=== PATIENT | female | born 1980 | race African-American/Black ===

== ENCOUNTER 2016-09-08 21:17 | Emergency (ER) | payer MEDICAID ==
[~2016-09-08] VITALS: Ht 167.6 cm; Wt 115.0 kg
[~2016-09-08 21:17] MED LIST: ASPI-1035 PO; FERR-43 PO; LABE300T PO; PREN-88 PO; SEROQUEL; depakote
[2016-09-08] MEDS ORDERED: IBUPROFEN 600MG TABLET PO ONE (23:00)
[2016-09-09 00:20] LABS: BASOPHILS % 0.3 % (0.0-2.0); EOSINOPHILS % 1.5 % (0.0-5.0); HEMATOCRIT. 35.7 % (36.0-48.0); HEMOGLOBIN. 12.2 g/dL (12.0-16.0); LYMPHOCYTES % 35.5 % (20.0-50.0); MEAN CORPUSCULAR HEMOGLOBIN 31.6 pg (28.0-32.0); MEAN CORPUSCULAR HGB CONC 34.2 g/dL (31.0-37.0); MEAN CORPUSCULAR VOLUME 92.4 fL (81.0-99.0); MEAN PLATELET VOLUME 8.4 fl (7.4-10.4); MONOCYTES % 9.3 % (2.0-8.0); NEUTROPHILS % 53.4 % (40.0-76.0); PLATELET 201 x1000/uL (130-400); RED BLOOD CELL COUNT 3.86 mill/uL (4.2-5.4); RED CELL DISTRIBUTION WIDTH 14.6 % (11.6-14.6)
[2016-09-09 00:53] LABS: ALBUMIN 3.1 g/dL (3.4-5.0); ANION GAP 11; CALCIUM 8.5 mg/dL (8.5-10.1); CARBON DIOXIDE 30 mEq/L (21-32); CHLORIDE 102 mEq/L (98-107); UREA NITROGEN BLOOD 7 mg/dL (7-21); eGFR > 60 mL/min (>60)
[2016-09-09 00:54] LABS: ACETAMINOPHEN < 2 ug/mL (10-30); ALANINE AMINOTRANSFERASE 17 IU/L (13-61); ETHANOL BLOOD < 10 mg/dL; LIPASE 121 IU/L (73-393); TROPONIN I 0.02 ng/mL (0.00-0.04)
[2016-09-09 01:12] LABS: CLARITY URINE CLOUDY (CLEAR); COLOR URINE YELLOW (YELLOW); GLUCOSE URINE NEGATIVE (NEGATIVE); KETONES URINE NEGATIVE (NEGATIVE); LEUKOCYTE ESTERASE URINE 1+ (NEGATIVE); NITRITE URINE NEGATIVE (NEGATIVE); OCCULT BLOOD URINE NEGATIVE (NEGATIVE); PH URINE 6.5 (4.5-8.0); PROTEIN URINE NEGATIVE (NEGATIVE); SPECIFIC GRAVITY URINE 1.021 (1.005-1.030); UROBILINOGEN URINE 0.2 E.U./dL (0.2-1.0)
[2016-09-09 01:52] LABS: *AMPHETAMINES SCREEN URINE NEGATIVE (NEGATIVE); *BARBITURATES SCREEN URINE NEGATIVE (NEGATIVE); *BENZODIAZEPINES SCREEN URINE NEGATIVE (NEGATIVE); *COCAINE SCREEN URINE PRESUMTIVE POSITIVE (NEGATIVE)
[2016-09-09 01:53] LABS: CANNABINOID URINE SCREEN NEGATIVE (NEGATIVE); ECSTASY MDMA SCREEN URINE NEGATIVE (NEGATIVE); METHADONE URINE SCREEN NEGATIVE (NEGATIVE); OPIATES URINE SCREEN NEGATIVE (NEGATIVE); PHENCYCLIDINE URINE SCREEN NEGATIVE (NEGATIVE)
[2016-09-09 01:54] LABS: RBC URINE 0-2 /hpf (0-2); SQUAMOUS EPITHELIAL CELL URINE 2+ /lpf (RARE/1+)
[2016-09-09 01:55] LABS: BACTERIA URINE 1+
[2016-09-09 01:59] LABS: INDEX HEMOLYSI 1 (1-3); INDEX ICTERIC 1 (1-4); INDEX LIPEMIC 1 (1-3)
[2016-09-09] MEDS ORDERED: NITROFURANTOIN 100MG M/M CAPSULE PO ONE (06:45)
[2016-09-09 08:28] VITALS: BP 122/71
== END 2016-09-09 10:30 | disposition left against medical advice (07) ==
LOC: ER 21:18
DX: R07.89 Other chest pain (principal); R10.10 Upper abdominal pain, unspecified; F31.9 Bipolar disorder, unspecified; Z88.0 Allergy status to penicillin; Z79.82 Long term (current) use of aspirin
CPT/HCPCS: 36415; 76705; 76856; 80053; 80305; 80329; 81001; 81025; 83690; 84443; 84484; 85025; 93005; 99285; G0482; 80307

== ENCOUNTER 2017-01-12 12:16 | Emergency (ER) | payer MEDICAID ==
[~2017-01-12] VITALS: Ht 175.3 cm; Wt 113.0 kg
[~2017-01-12 12:16] MED LIST changes: -ASPI-1035 PO; +ASPI-1159 PO
[2017-01-12] MEDS ORDERED: IBUPROFEN 600MG TABLET PO ONE (14:45)
[2017-01-12 15:35] LABS: BASOPHILS % 0.5 % (0.0-2.0); EOSINOPHILS % 1.5 % (0.0-5.0); HEMATOCRIT. 37.5 % (36.0-48.0); HEMOGLOBIN. 12.8 g/dL (12.0-16.0); LYMPHOCYTES % 30.6 % (20.0-50.0); MEAN CORPUSCULAR HEMOGLOBIN 30.8 pg (28.0-32.0); MEAN CORPUSCULAR VOLUME 90.3 fL (81.0-99.0); MEAN PLATELET VOLUME 8.3 fl (7.4-10.4); MONOCYTES % 5.3 % (2.0-8.0); NEUTROPHILS % 62.1 % (40.0-76.0); PLATELET 209 x1000/uL (130-400); RED BLOOD CELL COUNT 4.16 mill/uL (4.2-5.4); RED CELL DISTRIBUTION WIDTH 13.7 % (11.6-14.6)
[2017-01-12 15:44] LABS: CARBON DIOXIDE 27 mEq/L (21-32); CHLORIDE 106 mEq/L (98-107)
[2017-01-12 16:04] LABS: CLARITY URINE CLEAR (CLEAR); COLOR URINE YELLOW (YELLOW); GLUCOSE URINE NEGATIVE (NEGATIVE); KETONES URINE 1+ (NEGATIVE); LEUKOCYTE ESTERASE URINE 1+ (NEGATIVE); NITRITE URINE NEGATIVE (NEGATIVE); OCCULT BLOOD URINE NEGATIVE (NEGATIVE); PROTEIN URINE NEGATIVE (NEGATIVE); SPECIFIC GRAVITY URINE 1.015 (1.005-1.030); UROBILINOGEN URINE 0.2 E.U./dL (0.2-1.0)
[2017-01-12 16:17] LABS: *AMPHETAMINES SCREEN URINE NEGATIVE (NEGATIVE); *BARBITURATES SCREEN URINE NEGATIVE (NEGATIVE); *BENZODIAZEPINES SCREEN URINE NEGATIVE (NEGATIVE); CANNABINOID URINE SCREEN NEGATIVE (NEGATIVE); METHADONE URINE SCREEN NEGATIVE (NEGATIVE); OPIATES URINE SCREEN NEGATIVE (NEGATIVE); PHENCYCLIDINE URINE SCREEN NEGATIVE (NEGATIVE)
[2017-01-12 16:18] LABS: *COCAINE SCREEN URINE PRESUMTIVE POSITIVE (NEGATIVE)
[2017-01-12 16:59] VITALS: BP 137/86
== END 2017-01-12 17:26 | disposition left against medical advice (07) ==
LOC: ER 14:28
DX: N39.0 Urinary tract infection, site not specified (principal); A59.9 Trichomoniasis, unspecified; M54.5 Low back pain; I10 Essential (primary) hypertension; E11.9 Type 2 diabetes mellitus without complications; F20.9 Schizophrenia, unspecified; F31.9 Bipolar disorder, unspecified; F17.200 Nicotine dependence, unspecified, uncomplicated; F12.10 Cannabis abuse, uncomplicated; Z59.0 Homelessness; Z79.82 Long term (current) use of aspirin; Z88.0 Allergy status to penicillin
CPT/HCPCS: 36415; 72110; 80053; 80305; 80307; 80329; 81001; 81025; 85025; 99285

== ENCOUNTER 2017-01-12 20:08 | Emergency (ER) | payer MEDICAID ==
[~2017-01-12] VITALS: Ht 167.6 cm; Wt 114.0 kg
[2017-01-13] MEDS ORDERED: ONDANSETRON HCL 4MG/2ML VIAL IV STA (03:04)
[2017-01-13] MEDS ORDERED: MAGNESIUM/ALUMINUM HYDROXIDE/SIMETHICONE 30ML UDC PO ONE (03:15)
[2017-01-13] MEDS ORDERED: DICYCLOMINE 10 MG/5 ML ORAL SYR PO ONE (03:15)
[2017-01-13] MEDS ORDERED: VISCOUS LIDOCAINE 2% 15 ML UDC PO ONE (03:15)
[2017-01-13 03:39] LABS: CLARITY URINE CLEAR (CLEAR); COLOR URINE YELLOW (YELLOW); GLUCOSE URINE NEGATIVE (NEGATIVE); KETONES URINE NEGATIVE (NEGATIVE); LEUKOCYTE ESTERASE URINE TRACE (NEGATIVE); NITRITE URINE NEGATIVE (NEGATIVE); OCCULT BLOOD URINE NEGATIVE (NEGATIVE); PROTEIN URINE NEGATIVE (NEGATIVE); SPECIFIC GRAVITY URINE 1.008 (1.005-1.030); UROBILINOGEN URINE 0.2 E.U./dL (0.2-1.0)
[2017-01-13 03:53] LABS: BASOPHILS % 0.4 % (0.0-2.0); EOSINOPHILS % 1.6 % (0.0-5.0); HEMATOCRIT. 36.5 % (36.0-48.0); HEMOGLOBIN. 12.3 g/dL (12.0-16.0); LYMPHOCYTES % 36.2 % (20.0-50.0); MEAN CORPUSCULAR HEMOGLOBIN 30.7 pg (28.0-32.0); MEAN CORPUSCULAR VOLUME 90.9 fL (81.0-99.0); MEAN PLATELET VOLUME 8.3 fl (7.4-10.4); MONOCYTES % 6.1 % (2.0-8.0); NEUTROPHILS % 55.7 % (40.0-76.0); PLATELET 209 x1000/uL (130-400); RED BLOOD CELL COUNT 4.01 mill/uL (4.2-5.4)
[2017-01-13 03:58] LABS: CHLORIDE 105 mEq/L (98-107)
[2017-01-13 04:02] LABS: PROTHROMBIN TIME 10.3 sec
[2017-01-13 04:08] LABS: CARBON DIOXIDE 27 mEq/L (21-32)
[2017-01-13 07:40] VITALS: BP 124/73
== END 2017-01-13 12:30 | disposition home or self-care (01) ==
LOC: ER 01-13 03:26
DX: K29.70 Gastritis, unspecified, without bleeding (principal); A59.9 Trichomoniasis, unspecified; A74.9 Chlamydial infection, unspecified; I10 Essential (primary) hypertension; E11.9 Type 2 diabetes mellitus without complications; Z79.82 Long term (current) use of aspirin; Z88.0 Allergy status to penicillin; Z79.899 Other long term (current) drug therapy
CPT/HCPCS: 36415; 80053; 81001; 81025; 82962; 83690; 85025; 85610; 93005; 99285

== ENCOUNTER 2017-01-13 14:11 | Emergency (ER) | payer MEDICAID ==
[~2017-01-13] VITALS: Ht 167.6 cm; Wt 139.4 kg
[2017-01-13 14:28] VITALS: BP 175/102
== END 2017-01-13 17:17 | disposition home or self-care (01) ==
LOC: ER 14:11
DX: B34.9 Viral infection, unspecified (principal); K29.70 Gastritis, unspecified, without bleeding; I10 Essential (primary) hypertension; E11.9 Type 2 diabetes mellitus without complications; F17.210 Nicotine dependence, cigarettes, uncomplicated; Z88.0 Allergy status to penicillin; Z79.82 Long term (current) use of aspirin; Z79.899 Other long term (current) drug therapy; Z98.890 Other specified postprocedural states
CPT/HCPCS: 99283

== ENCOUNTER 2017-04-25 17:49 | Inpatient (IN) | payer MEDICAID ==
[~2017-04-25] VITALS: Ht 167.6 cm; Wt 137.0 kg
[2017-04-25] MEDS ORDERED: SODIUM CHLORIDE 0.9% 1,000 ML IV ONE (22:30)
[2017-04-25] MEDS ORDERED: ONDANSETRON HCL 4MG/2ML VIAL IV STA (22:30)
[2017-04-25] MEDS ORDERED: MORPHINE SULFATE 4 MG/ML CPJ (NOT FOR IM USE) IV STA (22:30)
[2017-04-25 22:53] LABS: BASOPHILS % 0.6 % (0.0-2.0); EOSINOPHILS % 1.8 % (0.0-5.0); HEMATOCRIT. 39.1 % (36.0-48.0); HEMOGLOBIN. 13.4 g/dL (12.0-16.0); LYMPHOCYTES % 29.4 % (20.0-50.0); MEAN CORPUSCULAR VOLUME 90.2 fL (81.0-99.0); MEAN PLATELET VOLUME 8.3 fl (7.4-10.4); MONOCYTES % 5.7 % (2.0-8.0); NEUTROPHILS % 62.5 % (40.0-76.0); PLATELET 260 x1000/uL (130-400); RED BLOOD CELL COUNT 4.33 mill/uL (4.2-5.4)
[2017-04-25 23:00] LABS: CHLORIDE 108 mEq/L (98-107)
[2017-04-25 23:01] LABS: CLARITY URINE CLOUDY (CLEAR); COLOR URINE YELLOW (YELLOW); GLUCOSE URINE NEGATIVE (NEGATIVE); KETONES URINE TRACE (NEGATIVE); LEUKOCYTE ESTERASE URINE 2+ (NEGATIVE); NITRITE URINE NEGATIVE (NEGATIVE); OCCULT BLOOD URINE NEGATIVE (NEGATIVE); PH URINE 5.5 (4.5-8.0); PROTEIN URINE NEGATIVE (NEGATIVE); SPECIFIC GRAVITY URINE 1.024 (1.005-1.030); UROBILINOGEN URINE 0.2 E.U./dL (0.2-1.0)
[2017-04-25 23:01] LABS: CARBON DIOXIDE 27 mEq/L (21-32)
[2017-04-25 23:02] LABS: PROTHROMBIN TIME 10.1 sec (9.4-11.6)
[2017-04-25 23:08] LABS: HCG SCREEN NEGATIVE
[2017-04-26] MEDS ORDERED: ACETAMINOPHEN 325MG TABLET PO ONE (00:15)
[2017-04-26] MEDS ORDERED: CEFTRIAXONE 1 G PREMIX 50 ML IV ONE (00:45)
[2017-04-26] MEDS ORDERED: DIPHENHYDRAMINE 50MG/ML VIAL IV ONE (00:45)
[2017-04-26 01:26] LABS: TROPONIN I < 0.02 ng/mL (0.00-0.04)
[2017-04-26 09:00] VITALS: BP 122/67
[2017-04-26 09:19] VITALS: BP 122/67
[2017-04-26] MEDS ORDERED: LABE100T PO (09:27)
[2017-04-26] MEDS ORDERED: AMLO2.5T45 PO (09:27)
[2017-04-26] MEDS ORDERED: METF500T4 PO (09:27)
[2017-04-26] MEDS ORDERED: QUET400T PO (09:27)
[2017-04-26] MEDS ORDERED: MAGNESIUM/ALUMINUM HYDROXIDE/SIMETHICONE 30ML UDC PO PRN (10:15)
[2017-04-26] MEDS ORDERED: HYDROCODONE/ACETAMINOPHEN 5/325MG TABLET PO PRN (10:15)
[2017-04-26] MEDS ORDERED: ACETAMINOPHEN 325MG TABLET PO PRN (10:15)
[2017-04-26] MEDS ORDERED: CLONIDINE 0.1MG TABLET PO PRN (10:15)
[2017-04-26] MEDS ORDERED: ONDANSETRON HCL 4MG/2ML VIAL IV PRN (10:15)
[2017-04-26 12:00] VITALS: BP 134/64
[2017-04-26] MEDS ORDERED: LEVOFLOXACIN 500MG PREMIX 100 ML IV SCH (12:00)
[2017-04-26] MEDS: ASPIRIN 81MG EC TABLET PO SCH (12:59)
[2017-04-26 16:00] VITALS: BP 163/87
[2017-04-26] MEDS ORDERED: DEXTROSE 50% WATER 50ML SYRINGE IV PRN (19:15)
[2017-04-26 20:00] VITALS: BP 158/88
[2017-04-26] MEDS: INSULIN LISPRO 100 UNITS/ML SUBCUT SCH (20:16)
[2017-04-26] MEDS: BLOOD SUGAR DIAGNOSTIC STRIP TEST SCH (20:16)
[2017-04-27 00:05] VITALS: BP 161/74
[2017-04-27 04:00] VITALS: BP 143/82
[2017-04-27] MEDS: BLOOD SUGAR DIAGNOSTIC STRIP TEST SCH (07:38)
[2017-04-27] MEDS: INSULIN LISPRO 100 UNITS/ML SUBCUT SCH (07:38)
[2017-04-27 08:00] VITALS: BP 151/86
[2017-04-27] MEDS: ASPIRIN 81MG EC TABLET PO SCH (08:31)
[2017-04-27 09:14] LABS: BASOPHILS % 0.6 % (0.0-2.0); HEMOGLOBIN. 13.2 g/dL (12.0-16.0); LYMPHOCYTES % 30.8 % (20.0-50.0); MEAN CORPUSCULAR HEMOGLOBIN 30.3 pg (28.0-32.0); MEAN CORPUSCULAR VOLUME 89.6 fL (81.0-99.0); MEAN PLATELET VOLUME 8.2 fl (7.4-10.4); MONOCYTES % 5.6 % (2.0-8.0); PLATELET 238 x1000/uL (130-400); RED BLOOD CELL COUNT 4.35 mill/uL (4.2-5.4); RED CELL DISTRIBUTION WIDTH 13.8 % (11.6-14.6)
[2017-04-27 09:52] LABS: CARBON DIOXIDE 27 mEq/L (21-32); CHLORIDE 106 mEq/L (98-107)
== END 2017-04-27 09:30 | disposition left against medical advice (07) | DRG 463 ==
LOC: ER 17:49 → 7WST 04-26 00:52 → EDBEDREQ 04-26 00:53 → ENRESERV 04-26 07:01
PROVIDERS: ADMIT Internal Medicine; ATTEND Internal Medicine
DX: N39.0 Urinary tract infection, site not specified (principal); E87.8 Other disorders of electrolyte and fluid balance, not elsewhere classified; E11.9 Type 2 diabetes mellitus without complications; E86.0 Dehydration; F17.210 Nicotine dependence, cigarettes, uncomplicated; F12.90 Cannabis use, unspecified, uncomplicated; F31.9 Bipolar disorder, unspecified; J02.9 Acute pharyngitis, unspecified; Z88.0 Allergy status to penicillin; Z79.899 Other long term (current) drug therapy; Z79.82 Long term (current) use of aspirin
CPT/HCPCS: 36415; 71010; 80053; 81001; 82962; 83605; 83690; 83880; 84484; 84703; 85025; 85610; 87040; 87086; 93005; 93970; 96361; 96365; 96375; 99285; J0696; J1200; J1956; J2270; J2405; J7030; J7050

== ENCOUNTER 2018-03-14 12:52 | Emergency (ER) | payer MEDICAID ==
[~2018-03-14] VITALS: Ht 167.6 cm; Wt 136.0 kg
[~2018-03-14 12:52] MED LIST changes: +AMLO2.5T45 PO; +LABE100T5 PO; -LABE300T PO; +LABE300T3 PO; +METF500T6 PO; +QUET400T PO
[2018-03-14 14:50] LABS: CLARITY URINE CLOUDY (CLEAR); COLOR URINE YELLOW (YELLOW); KETONES URINE TRACE (NEGATIVE); LEUKOCYTE ESTERASE URINE NEGATIVE (NEGATIVE); NITRITE URINE NEGATIVE (NEGATIVE); OCCULT BLOOD URINE NEGATIVE (NEGATIVE); PROTEIN URINE NEGATIVE (NEGATIVE); SPECIFIC GRAVITY URINE 1.019 (1.005-1.030)
[2018-03-14] MEDS ORDERED: VISCOUS LIDOCAINE 2% 15 ML UDC PO STA (15:56)
[2018-03-14] MEDS ORDERED: ONDANSETRON 4MG ODT PO STA (15:56)
[2018-03-14] MEDS ORDERED: MAGNESIUM/ALUMINUM HYDROXIDE/SIMETHICONE 30ML UDC PO STA (15:56)
[2018-03-14 16:29] LABS: BASOPHILS % 0.5 % (0.0-2.0); EOSINOPHILS % 2.8 % (0.0-5.0); LYMPHOCYTES % 36.5 % (20.0-50.0); MEAN CORPUSCULAR HEMOGLOBIN 30.3 pg (28.0-32.0); MEAN CORPUSCULAR VOLUME 88.4 fL (81.0-99.0); MEAN PLATELET VOLUME 8.1 fl (7.4-10.4); MONOCYTES % 5.9 % (2.0-8.0); NEUTROPHILS % 54.3 % (40.0-76.0); PLATELET 248 x1000/uL (130-400); RED BLOOD CELL COUNT 3.96 mill/uL (4.2-5.4); RED CELL DISTRIBUTION WIDTH 14.2 % (11.6-14.6)
[2018-03-14 16:33] LABS: HCG SCREEN NEGATIVE
[2018-03-14 16:36] LABS: CHLORIDE 107 mEq/L (98-107)
[2018-03-14 17:28] VITALS: BP 142/75
== END 2018-03-14 17:33 | disposition home or self-care (01) ==
LOC: ER 14:14
DX: R10.13 Epigastric pain (principal); R11.0 Nausea; R05 Cough; R19.7 Diarrhea, unspecified; F31.9 Bipolar disorder, unspecified; E11.9 Type 2 diabetes mellitus without complications; F17.200 Nicotine dependence, unspecified, uncomplicated; F12.10 Cannabis abuse, uncomplicated; Z87.440 Personal history of urinary (tract) infections; Z90.49 Acquired absence of other specified parts of digestive tract; Z79.899 Other long term (current) drug therapy; Z79.82 Long term (current) use of aspirin
CPT/HCPCS: 36415; 80053; 81003; 83690; 84703; 85025; 85610; 99284; Q0162; Z7610

== ENCOUNTER 2018-04-30 19:38 | Emergency (ER) | payer MEDICAID ==
[~2018-04-30] VITALS: Ht 167.6 cm; Wt 144.0 kg
[2018-04-30 22:21] LABS: BASOPHILS % 0.5 % (0.0-2.0); EOSINOPHILS % 2.2 % (0.0-5.0); HEMATOCRIT. 36.5 % (36.0-48.0); HEMOGLOBIN. 12.5 g/dL (12.0-16.0); LYMPHOCYTES % 28.9 % (20.0-50.0); MEAN CORPUSCULAR HEMOGLOBIN 31.2 pg (28.0-32.0); MEAN CORPUSCULAR VOLUME 90.7 fL (81.0-99.0); MEAN PLATELET VOLUME 8.3 fl (7.4-10.4); MONOCYTES % 4.9 % (2.0-8.0); NEUTROPHILS % 63.5 % (40.0-76.0); PLATELET 264 x1000/uL (130-400); RED BLOOD CELL COUNT 4.03 mill/uL (4.2-5.4); RED CELL DISTRIBUTION WIDTH 14.2 % (11.6-14.6)
[2018-04-30 22:24] LABS: CLARITY URINE TURBID (CLEAR); COLOR URINE YELLOW (YELLOW); KETONES URINE 1+ (NEGATIVE); LEUKOCYTE ESTERASE URINE 2+ (NEGATIVE); NITRITE URINE NEGATIVE (NEGATIVE); OCCULT BLOOD URINE 2+ (NEGATIVE); PROTEIN URINE 3+ (NEGATIVE); SPECIFIC GRAVITY URINE 1.026 (1.005-1.030); UROBILINOGEN URINE 0.2 E.U./dL (0.2-1.0)
[2018-04-30 22:26] LABS: CHLORIDE 106 mEq/L (98-107)
[2018-04-30 22:34] LABS: ETHANOL BLOOD < 10 mg/dL
[2018-04-30 22:45] LABS: *BARBITURATES SCREEN URINE NEGATIVE (NEGATIVE); *BENZODIAZEPINES SCREEN URINE NEGATIVE (NEGATIVE); *COCAINE SCREEN URINE NEGATIVE (NEGATIVE); CANNABINOID URINE SCREEN NEGATIVE (NEGATIVE); METHADONE URINE SCREEN NEGATIVE (NEGATIVE); PHENCYCLIDINE URINE SCREEN NEGATIVE (NEGATIVE)
[2018-04-30] MEDS ORDERED: NITROFURANTOIN 100MG M/M CAPSULE PO ONE (22:45)
[2018-04-30 22:56] LABS: *AMPHETAMINES SCREEN URINE PRESUMTIVE POSITIVE (NEGATIVE)
[2018-04-30 22:57] LABS: OPIATES URINE SCREEN PRESUMTIVE POSITIVE (NEGATIVE)
[2018-05-01 13:56] VITALS: BP 138/68
== END 2018-05-01 14:00 | disposition home or self-care (01) ==
LOC: ER 21:35
DX: N30.00 Acute cystitis without hematuria (principal); F15.10 Other stimulant abuse, uncomplicated; I10 Essential (primary) hypertension; E11.9 Type 2 diabetes mellitus without complications; F31.9 Bipolar disorder, unspecified; F17.200 Nicotine dependence, unspecified, uncomplicated; R45.851 Suicidal ideations; F12.10 Cannabis abuse, uncomplicated; Z79.84 Long term (current) use of oral hypoglycemic drugs; Z98.890 Other specified postprocedural states
CPT/HCPCS: 36415; 80053; 80305; 81003; 85025; 87077; 87086; 87186; 99284; G0482

== ENCOUNTER 2018-08-31 18:20 | Emergency (ER) | payer MEDICAID ==
[~2018-08-31] VITALS: Ht 167.6 cm; Wt 136.0 kg
[~2018-08-31 18:20] MED LIST changes: +METF-414 PO; -METF500T6 PO
[2018-08-31] MEDS ORDERED: SODIUM CHLORIDE 0.9% 1,000 ML IV ONE (22:21)
[2018-08-31] MEDS ORDERED: KETOROLAC 30MG/ML VIAL IV STA (22:21)
[2018-08-31] MEDS ORDERED: ASPIRIN 81MG TABLET PO ONE (22:30)
[2018-08-31] MEDS ORDERED: NITROGLYCERIN 0.4MG TABLET SL SL PRN (22:30)
[2018-09-01 00:24] LABS: BASOPHILS % 0.3 % (0.0-2.0); EOSINOPHILS % 2.5 % (0.0-5.0); HEMATOCRIT. 36.3 % (36.0-48.0); LYMPHOCYTES % 42.3 % (20.0-50.0); MEAN CORPUSCULAR HEMOGLOBIN 29.6 pg (28.0-32.0); MEAN CORPUSCULAR VOLUME 89.7 fL (81.0-99.0); MEAN PLATELET VOLUME 8.1 fl (7.4-10.4); MONOCYTES % 6.3 % (2.0-8.0); NEUTROPHILS % 48.6 % (40.0-76.0); PLATELET 273 x1000/uL (130-400); RED BLOOD CELL COUNT 4.04 mill/uL (4.2-5.4); RED CELL DISTRIBUTION WIDTH 15.3 % (11.6-14.6)
[2018-09-01 00:27] LABS: CHLORIDE 108 mEq/L (98-107); PARTIAL THROMBOPLASTIN TIME 28.3 sec (23.4-31.0)
[2018-09-01 00:29] LABS: HCG SCREEN NEGATIVE
[2018-09-01 00:30] LABS: CLARITY URINE CLEAR (CLEAR); COLOR URINE YELLOW (YELLOW); KETONES URINE NEGATIVE (NEGATIVE); LEUKOCYTE ESTERASE URINE TRACE (NEGATIVE); NITRITE URINE NEGATIVE (NEGATIVE); OCCULT BLOOD URINE NEGATIVE (NEGATIVE); PH URINE 6.5 (4.5-8.0); PROTEIN URINE NEGATIVE (NEGATIVE); SPECIFIC GRAVITY URINE 1.005 (1.005-1.030); UROBILINOGEN URINE 0.2 E.U./dL (0.2-1.0)
[2018-09-01 00:44] LABS: *AMPHETAMINES SCREEN URINE NEGATIVE (NEGATIVE); *BARBITURATES SCREEN URINE NEGATIVE (NEGATIVE); *BENZODIAZEPINES SCREEN URINE NEGATIVE (NEGATIVE); *COCAINE SCREEN URINE NEGATIVE (NEGATIVE)
[2018-09-01 00:45] LABS: CANNABINOID URINE SCREEN NEGATIVE (NEGATIVE); METHADONE URINE SCREEN NEGATIVE (NEGATIVE); OPIATES URINE SCREEN NEGATIVE (NEGATIVE); PHENCYCLIDINE URINE SCREEN NEGATIVE (NEGATIVE)
[2018-09-01] MEDS ORDERED: CEFTRIAXONE 1 G PREMIX 50 ML IV ONE (01:00)
[2018-09-01 08:53] VITALS: BP 155/87
== END 2018-09-01 08:58 | disposition left against medical advice (07) ==
LOC: ER 18:20 → CANBEDREQ 09-01 17:58
DX: R07.89 Other chest pain (principal); N39.0 Urinary tract infection, site not specified; I10 Essential (primary) hypertension; E11.9 Type 2 diabetes mellitus without complications; F31.9 Bipolar disorder, unspecified; F17.210 Nicotine dependence, cigarettes, uncomplicated; Z79.82 Long term (current) use of aspirin; Z79.84 Long term (current) use of oral hypoglycemic drugs; Z98.890 Other specified postprocedural states; F12.10 Cannabis abuse, uncomplicated
CPT/HCPCS: 36415; 71045; 80053; 80305; 81003; 81025; 82962; 83690; 83880; 84484; 84703; 85025; 85610; 85730; 93005; 96365; 96375; 99284; J0696; J1885; J7030

== ENCOUNTER 2018-09-20 23:50 | Emergency (ER) | payer MEDICAID ==
[~2018-09-20] VITALS: Ht 167.6 cm; Wt 118.0 kg
[2018-09-21] MEDS ORDERED: IBUPROFEN 600MG TABLET PO STA (09:02)
[2018-09-21 09:55] LABS: BASOPHILS % 0.6 % (0.0-2.0); EOSINOPHILS % 2.1 % (0.0-5.0); HEMATOCRIT. 38.7 % (36.0-48.0); HEMOGLOBIN. 12.8 g/dL (12.0-16.0); LYMPHOCYTES % 39.3 % (20.0-50.0); MEAN CORPUSCULAR HEMOGLOBIN 29.5 pg (28.0-32.0); MEAN CORPUSCULAR VOLUME 89.1 fL (81.0-99.0); MONOCYTES % 7.1 % (2.0-8.0); NEUTROPHILS % 50.9 % (40.0-76.0); PLATELET 253 x1000/uL (130-400); RED BLOOD CELL COUNT 4.34 mill/uL (4.2-5.4); RED CELL DISTRIBUTION WIDTH 15.1 % (11.6-14.6)
[2018-09-21 10:02] LABS: CHLORIDE 105 mEq/L (98-107)
[2018-09-21 14:30] VITALS: BP 138/78
== END 2018-09-21 15:31 | disposition left against medical advice (07) ==
LOC: ER 23:50
DX: R07.89 Other chest pain (principal); J45.909 Unspecified asthma, uncomplicated; F31.9 Bipolar disorder, unspecified; E11.9 Type 2 diabetes mellitus without complications; I10 Essential (primary) hypertension; F20.9 Schizophrenia, unspecified; F17.200 Nicotine dependence, unspecified, uncomplicated; F12.10 Cannabis abuse, uncomplicated; Z79.82 Long term (current) use of aspirin; Z59.0 Homelessness; Z79.899 Other long term (current) drug therapy
CPT/HCPCS: 36415; 71045; 81025; 84484; 93005; 99284

== ENCOUNTER 2018-12-18 21:33 | Emergency (ER) | payer MEDICAID ==
[~2018-12-18] VITALS: Ht 167.6 cm; Wt 135.0 kg
[2018-12-18 23:16] LABS: HEMATOCRIT 38.3 % (36.0-48.0); HEMOGLOBIN 13.1 g/dL (12.0-16.0); MEAN CORPUSCULAR HEMOGLOBIN 30.8 pg (28.0-32.0); MEAN CORPUSCULAR VOLUME 89.7 fL (81.0-99.0); PLATELET 251 x1000/uL (130-400); RED BLOOD CELL COUNT 4.27 mill/uL (4.2-5.4); RED CELL DISTRIBUTION WIDTH 15.1 % (11.6-14.6)
[2018-12-18 23:22] LABS: CHLORIDE 109 mEq/L (98-107)
[2018-12-18 23:26] LABS: *BARBITURATES SCREEN URINE NEGATIVE (NEGATIVE); *BENZODIAZEPINES SCREEN URINE NEGATIVE (NEGATIVE)
[2018-12-18 23:27] LABS: METHADONE URINE SCREEN NEGATIVE (NEGATIVE); OPIATES URINE SCREEN NEGATIVE (NEGATIVE); PHENCYCLIDINE URINE SCREEN NEGATIVE (NEGATIVE)
[2018-12-19 00:12] LABS: CANNABINOID URINE SCREEN NEGATIVE (NEGATIVE)
[2018-12-19 00:18] LABS: *AMPHETAMINES SCREEN URINE PRESUMTIVE POSITIVE (NEGATIVE); *COCAINE SCREEN URINE PRESUMTIVE POSITIVE (NEGATIVE)
[2018-12-19 02:53] VITALS: BP 131/72
== END 2018-12-19 07:01 | disposition home or self-care (01) ==
LOC: ER 21:33
DX: F19.10 Other psychoactive substance abuse, uncomplicated (principal); R07.89 Other chest pain; E11.9 Type 2 diabetes mellitus without complications; I10 Essential (primary) hypertension; F20.9 Schizophrenia, unspecified; F31.9 Bipolar disorder, unspecified; G43.909 Migraine, unspecified, not intractable, without status migrainosus; F12.10 Cannabis abuse, uncomplicated; F17.200 Nicotine dependence, unspecified, uncomplicated; Z79.899 Other long term (current) drug therapy; Z98.890 Other specified postprocedural states; Y08.89XA Assault by other specified means, initial encounter; Y93.89 Activity, other specified; Y92.89 Other specified places as the place of occurrence of the external cause; Y99.8 Other external cause status
CPT/HCPCS: 36415; 71045; 80305; 81025; 85027; 93005; 99284

== ENCOUNTER 2019-04-03 12:27 | Emergency (ER) | payer MEDICAID ==
[~2019-04-03] VITALS: Ht 167.6 cm; Wt 128.0 kg
[~2019-04-03 12:27] MED LIST changes: -ASPI-1159 PO; +ASPI-1393 PO
[2019-04-03 12:59] VITALS: BP 122/83
== END 2019-04-03 15:05 | disposition left against medical advice (07) ==
LOC: ER 12:27
DX: R07.89 Other chest pain (principal); Z53.21 Procedure and treatment not carried out due to patient leaving prior to being seen by health care provider
CPT/HCPCS: 93005

== ENCOUNTER 2019-04-12 19:31 | Emergency (ER) | payer MEDICAID ==
[~2019-04-12] VITALS: Ht 167.6 cm; Wt 127.0 kg
[2019-04-13 02:00] LABS: BASOPHILS % 0.6 % (0.0-2.0); EOSINOPHILS % 1.4 % (0.0-5.0); HEMATOCRIT. 36.3 % (36.0-48.0); HEMOGLOBIN. 12.1 g/dL (12.0-16.0); LYMPHOCYTES % 46.6 % (20.0-50.0); MEAN CORPUSCULAR HEMOGLOBIN 29.5 pg (28.0-32.0); MEAN CORPUSCULAR VOLUME 88.9 fL (81.0-99.0); MONOCYTES % 8.3 % (2.0-8.0); NEUTROPHILS % 43.1 % (40.0-76.0); PLATELET 231 x1000/uL (130-400); RED BLOOD CELL COUNT 4.09 mill/uL (4.2-5.4); RED CELL DISTRIBUTION WIDTH 15.7 % (11.6-14.6)
[2019-04-13 02:07] LABS: CHLORIDE 105 mEq/L (98-107)
[2019-04-13 02:12] LABS: ETHANOL BLOOD < 10 mg/dL
[2019-04-13 05:52] LABS: CLARITY URINE CLEAR (CLEAR); COLOR URINE YELLOW (YELLOW); KETONES URINE TRACE (NEGATIVE); LEUKOCYTE ESTERASE URINE 1+ (NEGATIVE); NITRITE URINE NEGATIVE (NEGATIVE); OCCULT BLOOD URINE NEGATIVE (NEGATIVE); PH URINE 6.5 (4.5-8.0); PROTEIN URINE NEGATIVE (NEGATIVE); SPECIFIC GRAVITY URINE 1.018 (1.005-1.030); UROBILINOGEN URINE 0.2 E.U./dL (0.2-1.0)
[2019-04-13 06:07] LABS: *BENZODIAZEPINES SCREEN URINE NEGATIVE (NEGATIVE); *COCAINE SCREEN URINE NEGATIVE (NEGATIVE); CANNABINOID URINE SCREEN NEGATIVE (NEGATIVE); METHADONE URINE SCREEN NEGATIVE (NEGATIVE)
[2019-04-13 06:08] LABS: OPIATES URINE SCREEN NEGATIVE (NEGATIVE); PHENCYCLIDINE URINE SCREEN NEGATIVE (NEGATIVE)
[2019-04-13 06:14] LABS: *BARBITURATES SCREEN URINE NEGATIVE (NEGATIVE)
[2019-04-13 06:27] LABS: *AMPHETAMINES SCREEN URINE PRESUMTIVE POSITIVE (NEGATIVE)
[2019-04-13 07:14] VITALS: BP 124/68
== END 2019-04-13 08:50 | disposition left against medical advice (07) ==
LOC: ER 19:31
DX: Z59.0 Homelessness (principal); F31.9 Bipolar disorder, unspecified; Z32.02 Encounter for pregnancy test, result negative; I10 Essential (primary) hypertension; E11.9 Type 2 diabetes mellitus without complications
CPT/HCPCS: 36415; 80305; 80307; 80320; 80329; 81003; 81025; 82962; 93005; 99284; G0480

== ENCOUNTER 2019-06-05 12:05 | Emergency (ER) | payer MEDICAID ==
[~2019-06-05] VITALS: Ht 167.6 cm; Wt 130.0 kg
[2019-06-05 12:44] VITALS: BP 157/75
== END 2019-06-05 15:13 | disposition left against medical advice (07) ==
LOC: ER 12:05
DX: S09.8XXA Other specified injuries of head, initial encounter (principal); X58.XXXA Exposure to other specified factors, initial encounter; Y93.89 Activity, other specified; Y92.89 Other specified places as the place of occurrence of the external cause; Y99.8 Other external cause status; Z53.21 Procedure and treatment not carried out due to patient leaving prior to being seen by health care provider

== ENCOUNTER 2019-06-29 19:22 | Emergency (ER) | payer MEDICAID ==
[~2019-06-29] VITALS: Ht 167.6 cm; Wt 127.0 kg
[2019-06-30 01:32] VITALS: BP 140/90
[2019-06-30 01:39] LABS: BASOPHILS % 0.6 % (0.0-2.0); EOSINOPHILS % 0.3 % (0.0-5.0); HEMATOCRIT. 38.2 % (36.0-48.0); LYMPHOCYTES % 36.6 % (20.0-50.0); MEAN CORPUSCULAR HEMOGLOBIN 30.8 pg (28.0-32.0); MEAN CORPUSCULAR VOLUME 90.4 fL (81.0-99.0); MEAN PLATELET VOLUME 8.2 fl (7.4-10.4); MONOCYTES % 5.8 % (2.0-8.0); NEUTROPHILS % 56.7 % (40.0-76.0); PLATELET 281 x1000/uL (130-400); RED BLOOD CELL COUNT 4.23 mill/uL (4.2-5.4); RED CELL DISTRIBUTION WIDTH 14.5 % (11.6-14.6)
[2019-06-30 01:42] LABS: CHLORIDE 105 mEq/L (98-107)
[2019-06-30 01:43] LABS: PROTHROMBIN TIME 10.5 sec (9.6-11.0)
[2019-06-30] MEDS ORDERED: IPRATROPIUM BROMIDE (0.02%) 0.5MG/2.5ML NEB HHN SCH (01:48)
[2019-06-30] MEDS ORDERED: PREDNISONE 20MG TABLET PO SCH (01:48)
[2019-06-30] MEDS ORDERED: ALBUTEROL (0.083%) 2.5MG/3ML NEB HHN SCH (01:48)
[2019-06-30] MEDS ORDERED: SODIUM CHLORIDE 0.9% 1,000 ML IV ONE (02:00)
[2019-06-30 02:09] LABS: CLARITY URINE CLOUDY (CLEAR); COLOR URINE YELLOW (YELLOW); KETONES URINE TRACE (NEGATIVE); LEUKOCYTE ESTERASE URINE 1+ (NEGATIVE); NITRITE URINE NEGATIVE (NEGATIVE); OCCULT BLOOD URINE NEGATIVE (NEGATIVE); PROTEIN URINE TRACE (NEGATIVE); SPECIFIC GRAVITY URINE 1.017 (1.005-1.030)
[2019-06-30] MEDS ORDERED: IPRATROPIUM/ALBUTEROL 0.5-3(2.5)MG/3ML NEB ONE (02:22)
[2019-06-30] MEDS ORDERED: ALBUTEROL (0.5%) 2.5MG/0.5ML NEB HHN ONE (02:22)
[2019-06-30 02:23] LABS: *BARBITURATES SCREEN URINE NEGATIVE (NEGATIVE); *BENZODIAZEPINES SCREEN URINE NEGATIVE (NEGATIVE); METHADONE URINE SCREEN NEGATIVE (NEGATIVE); OPIATES URINE SCREEN NEGATIVE (NEGATIVE); PHENCYCLIDINE URINE SCREEN NEGATIVE (NEGATIVE)
[2019-06-30 02:24] LABS: CANNABINOID URINE SCREEN NEGATIVE (NEGATIVE)
[2019-06-30 02:28] LABS: *AMPHETAMINES SCREEN URINE PRESUMTIVE POSITIVE (NEGATIVE); *COCAINE SCREEN URINE PRESUMTIVE POSITIVE (NEGATIVE)
== END 2019-06-30 03:51 | disposition left against medical advice (07) ==
LOC: ER 19:22
DX: R05 Cough (principal); F17.290 Nicotine dependence, other tobacco product, uncomplicated; J45.909 Unspecified asthma, uncomplicated; Z79.82 Long term (current) use of aspirin; Z79.899 Other long term (current) drug therapy
CPT/HCPCS: 36415; 71045; 80053; 80305; 81003; 81025; 82962; 85025; 85610; 87086; 93005; 94640; 99284; J7512; J7611; J7620; Z7610

== ENCOUNTER 2019-07-10 22:08 | Emergency (ER) | payer MEDICAID ==
[~2019-07-10] VITALS: Ht 165.1 cm; Wt 127.0 kg
[2019-07-11 05:42] LABS: BASOPHILS % 0.3 % (0.0-2.0); EOSINOPHILS % 1.3 % (0.0-5.0); HEMATOCRIT. 36.3 % (36.0-48.0); HEMOGLOBIN. 12.3 g/dL (12.0-16.0); MEAN CORPUSCULAR VOLUME 91.9 fL (81.0-99.0); MONOCYTES % 7.3 % (2.0-8.0); NEUTROPHILS % 47.1 % (40.0-76.0); PLATELET 215 x1000/uL (130-400); RED BLOOD CELL COUNT 3.96 mill/uL (4.2-5.4); RED CELL DISTRIBUTION WIDTH 14.1 % (11.6-14.6)
[2019-07-11 05:56] LABS: CHLORIDE 109 mEq/L (98-107)
[2019-07-11 08:53] VITALS: BP 146/82
== END 2019-07-11 09:20 | disposition left against medical advice (07) ==
LOC: ER 22:08
DX: R07.89 Other chest pain (principal); R06.02 Shortness of breath; R11.2 Nausea with vomiting, unspecified; E11.9 Type 2 diabetes mellitus without complications; I10 Essential (primary) hypertension; F20.9 Schizophrenia, unspecified; F17.290 Nicotine dependence, other tobacco product, uncomplicated; F14.10 Cocaine abuse, uncomplicated; F12.10 Cannabis abuse, uncomplicated; F15.10 Other stimulant abuse, uncomplicated; Z79.899 Other long term (current) drug therapy
CPT/HCPCS: 36415; 71045; 80053; 83880; 84484; 85025; 93005; 99284; Z7610

== ENCOUNTER 2019-08-16 14:03 | Emergency (ER) | payer MEDICAID ==
[~2019-08-16] VITALS: Ht 160 cm; Wt 114.0 kg
[~2019-08-16 14:03] MED LIST changes: -ASPI-1393 PO; +ASPI-1497 PO
[2019-08-16] MEDS ORDERED: MAGNESIUM/ALUMINUM HYDROXIDE/SIMETHICONE 30ML UDC PO STA (18:24)
[2019-08-16] MEDS ORDERED: VISCOUS LIDOCAINE 2% 15 ML UDC PO STA (18:24)
[2019-08-16 18:46] LABS: BASOPHILS % 0.9 % (0.0-2.0); HEMOGLOBIN. 12.7 g/dL (12.0-16.0); LYMPHOCYTES % 39.6 % (20.0-50.0); MEAN CORPUSCULAR HEMOGLOBIN 30.5 pg (28.0-32.0); MEAN CORPUSCULAR VOLUME 91.6 fL (81.0-99.0); MONOCYTES % 6.3 % (2.0-8.0); NEUTROPHILS % 50.2 % (40.0-76.0); PLATELET 262 x1000/uL (130-400); RED BLOOD CELL COUNT 4.15 mill/uL (4.2-5.4); RED CELL DISTRIBUTION WIDTH 14.3 % (11.6-14.6)
[2019-08-16 18:52] LABS: CHLORIDE 108 mEq/L (98-107)
[2019-08-16 18:55] LABS: ETHANOL BLOOD < 10 mg/dL
[2019-08-16 19:00] LABS: CLARITY URINE CLEAR (CLEAR); COLOR URINE RED (YELLOW); KETONES URINE NEGATIVE (NEGATIVE); LEUKOCYTE ESTERASE URINE TRACE (NEGATIVE); NITRITE URINE NEGATIVE (NEGATIVE); OCCULT BLOOD URINE 3+ (NEGATIVE); PH URINE 5.5 (4.5-8.0); PROTEIN URINE NEGATIVE (NEGATIVE); SPECIFIC GRAVITY URINE 1.008 (1.005-1.030); UROBILINOGEN URINE 0.2 E.U./dL (0.2-1.0)
[2019-08-16 19:13] LABS: *BARBITURATES SCREEN URINE NEGATIVE (NEGATIVE); *BENZODIAZEPINES SCREEN URINE NEGATIVE (NEGATIVE); *COCAINE SCREEN URINE NEGATIVE (NEGATIVE); METHADONE URINE SCREEN NEGATIVE (NEGATIVE); OPIATES URINE SCREEN NEGATIVE (NEGATIVE); PHENCYCLIDINE URINE SCREEN NEGATIVE (NEGATIVE)
[2019-08-16 19:14] LABS: CANNABINOID URINE SCREEN NEGATIVE (NEGATIVE)
[2019-08-16 19:16] LABS: *AMPHETAMINES SCREEN URINE PRESUMTIVE POSITIVE (NEGATIVE)
[2019-08-17 08:12] VITALS: BP 140/85
== END 2019-08-17 08:19 ==
LOC: ER 14:03
DX: F29 Unspecified psychosis not due to a substance or known physiological condition (principal); R10.2 Pelvic and perineal pain; F32.9 Major depressive disorder, single episode, unspecified; F14.10 Cocaine abuse, uncomplicated; F15.10 Other stimulant abuse, uncomplicated; F12.10 Cannabis abuse, uncomplicated; N39.0 Urinary tract infection, site not specified; I10 Essential (primary) hypertension
CPT/HCPCS: 36415; 80053; 80165; 80305; 80320; 81003; 81025; 85025; 99285; G0480

== ENCOUNTER 2019-11-23 22:06 | Emergency (ER) | payer MEDICAID ==
[~2019-11-23] VITALS: Ht 167.6 cm; Wt 127.0 kg
[2019-11-23 22:36] VITALS: BP 154/67
== END 2019-11-24 00:34 | disposition left against medical advice (07) ==
LOC: ER 22:06
DX: B34.9 Viral infection, unspecified (principal); E11.9 Type 2 diabetes mellitus without complications; I10 Essential (primary) hypertension; F14.10 Cocaine abuse, uncomplicated; F12.10 Cannabis abuse, uncomplicated; F15.10 Other stimulant abuse, uncomplicated; Z79.899 Other long term (current) drug therapy
CPT/HCPCS: 71045; 82962; 99283

== ENCOUNTER 2020-01-03 21:39 | Emergency (ER) | payer MEDICAID ==
[~2020-01-03] VITALS: Ht 162.6 cm; Wt 113.0 kg
[2020-01-04 02:12] LABS: BASOPHILS % 0.9 % (0.0-2.0); EOSINOPHILS % 2.1 % (0.0-5.0); HEMATOCRIT. 33.2 % (36.0-48.0); HEMOGLOBIN. 11.2 g/dL (12.0-16.0); LYMPHOCYTES % 37.9 % (20.0-50.0); MEAN CORPUSCULAR VOLUME 88.9 fL (81.0-99.0); MEAN PLATELET VOLUME 8.1 fl (7.4-10.4); MONOCYTES % 12.5 % (2.0-8.0); NEUTROPHILS % 46.6 % (40.0-76.0); PLATELET 268 x1000/uL (130-400); RED BLOOD CELL COUNT 3.73 mill/uL (4.2-5.4); RED CELL DISTRIBUTION WIDTH 15.1 % (11.6-14.6)
[2020-01-04 02:16] LABS: CHLORIDE 107 mEq/L (98-107)
[2020-01-04 03:10] VITALS: BP 133/69
== END 2020-01-04 03:16 | disposition home or self-care (01) ==
LOC: ER 21:39
DX: Z03.818 Encounter for observation for suspected exposure to other biological agents ruled out (principal); R07.89 Other chest pain; J06.9 Acute upper respiratory infection, unspecified; E11.9 Type 2 diabetes mellitus without complications; I10 Essential (primary) hypertension; F14.10 Cocaine abuse, uncomplicated; F15.10 Other stimulant abuse, uncomplicated; F12.10 Cannabis abuse, uncomplicated; Z86.19 Personal history of other infectious and parasitic diseases; Z79.84 Long term (current) use of oral hypoglycemic drugs; Z79.82 Long term (current) use of aspirin
CPT/HCPCS: 36415; 71045; 80053; 81025; 83880; 84484; 85025; 93005; 99285; U0003

== ENCOUNTER 2020-02-08 19:25 | Emergency (ER) | payer MEDICAID ==
[~2020-02-08] VITALS: Ht 175.3 cm; Wt 100.0 kg
[2020-02-08] MEDS ORDERED: IBUPROFEN 400MG TABLET PO ONE (20:45)
[2020-02-08 20:59] LABS: BASOPHILS % 0.5 % (0.0-2.0); CHLORIDE 107 mEq/L (98-107); EOSINOPHILS % 1.1 % (0.0-5.0); HEMATOCRIT. 33.7 % (36.0-48.0); HEMOGLOBIN. 11.4 g/dL (12.0-16.0); LYMPHOCYTES % 32.7 % (20.0-50.0); MEAN CORPUSCULAR HEMOGLOBIN 28.9 pg (28.0-32.0); MEAN CORPUSCULAR VOLUME 85.5 fL (81.0-99.0); MEAN PLATELET VOLUME 7.5 fl (7.4-10.4); MONOCYTES % 8.6 % (2.0-8.0); NEUTROPHILS % 57.1 % (40.0-76.0); PLATELET 325 x1000/uL (130-400); RED BLOOD CELL COUNT 3.95 mill/uL (4.2-5.4); RED CELL DISTRIBUTION WIDTH 15.8 % (11.6-14.6)
[2020-02-08 21:03] LABS: ETHANOL BLOOD 14 mg/dL
[2020-02-08 21:15] LABS: HCG SCREEN NEGATIVE
[2020-02-08] MEDS ORDERED: ASPIRIN 325MG EC TABLET PO ONE (21:15)
[2020-02-08 23:37] LABS: CLARITY URINE CLOUDY (CLEAR); COLOR URINE YELLOW (YELLOW); KETONES URINE NEGATIVE (NEGATIVE); LEUKOCYTE ESTERASE URINE 1+ (NEGATIVE); NITRITE URINE NEGATIVE (NEGATIVE); OCCULT BLOOD URINE NEGATIVE (NEGATIVE); PH URINE 5.5 (4.5-8.0); PROTEIN URINE NEGATIVE (NEGATIVE); SPECIFIC GRAVITY URINE 1.014 (1.005-1.030)
[2020-02-09] MEDS ORDERED: LIDOCAINE HCL 1% 20ML VIAL (Pyxis) INJ INFIL ONE
[2020-02-09] MEDS ORDERED: CEFTRIAXONE SODIUM 1 G/VIAL IM ONE
[2020-02-09 00:07] LABS: *BARBITURATES SCREEN URINE NEGATIVE (NEGATIVE); *BENZODIAZEPINES SCREEN URINE NEGATIVE (NEGATIVE); *COCAINE SCREEN URINE NEGATIVE (NEGATIVE); CANNABINOID URINE SCREEN NEGATIVE (NEGATIVE); METHADONE URINE SCREEN NEGATIVE (NEGATIVE); OPIATES URINE SCREEN NEGATIVE (NEGATIVE); PHENCYCLIDINE URINE SCREEN NEGATIVE (NEGATIVE)
[2020-02-09 00:10] LABS: *AMPHETAMINES SCREEN URINE PRESUMTIVE POSITIVE (NEGATIVE)
[2020-02-09] MEDS ORDERED: METOPROLOL TARTRATE 25MG TABLET PO ONE (05:00)
[2020-02-09] MEDS ORDERED: OLANZAPINE 10 MG/VIAL IM ONE ×2 (07:15)
[2020-02-09] MEDS ORDERED: LORAZEPAM 2MG/ML CPJ IM ONE ×2 (07:15)
[2020-02-09] MEDS ORDERED: LORAZEPAM 2MG/ML CPJ ONE (07:16)
[2020-02-10 22:51] VITALS: BP 159/75
== END 2020-02-11 00:32 | disposition home or self-care (01) ==
LOC: ER 19:25
DX: T43.621A Poisoning by amphetamines, accidental (unintentional), initial encounter (principal); F10.129 Alcohol abuse with intoxication, unspecified; N39.0 Urinary tract infection, site not specified; R07.89 Other chest pain; F20.9 Schizophrenia, unspecified; F31.9 Bipolar disorder, unspecified; I10 Essential (primary) hypertension; E11.9 Type 2 diabetes mellitus without complications; F14.10 Cocaine abuse, uncomplicated; F12.10 Cannabis abuse, uncomplicated; Y90.0 Blood alcohol level of less than 20 mg/100 ml; Z79.82 Long term (current) use of aspirin; Y92.89 Other specified places as the place of occurrence of the external cause
CPT/HCPCS: 36415; 71045; 80053; 80305; 80307; 80320; 80329; 81003; 81025; 84484; 84703; 85025; 87086; 93005; 96372; 99285; J0696; J2060; J3490; G0480

== ENCOUNTER 2020-05-01 23:55 | Emergency (ER) | payer MEDICAID ==
[~2020-05-01] VITALS: Ht 162.6 cm; Wt 100.0 kg
[2020-05-02] MEDS ORDERED: ACETAMINOPHEN 325MG TABLET PO ONE (00:30)
[2020-05-02] MEDS ORDERED: SODIUM CHLORIDE 0.9% 1,000 ML IV ONE (01:00)
[2020-05-02 01:53] LABS: BASOPHILS % 0.6 % (0.0-2.0); EOSINOPHILS % 0.6 % (0.0-5.0); HEMATOCRIT. 31.5 % (36.0-48.0); HEMOGLOBIN. 10.4 g/dL (12.0-16.0); MEAN CORPUSCULAR HEMOGLOBIN 28.1 pg (28.0-32.0); MEAN CORPUSCULAR VOLUME 85.2 fL (81.0-99.0); MEAN PLATELET VOLUME 8.2 fl (7.4-10.4); MONOCYTES % 5.2 % (2.0-8.0); NEUTROPHILS % 40.6 % (40.0-76.0); PLATELET 258 x1000/uL (130-400); RED CELL DISTRIBUTION WIDTH 18.4 % (11.6-14.6)
[2020-05-02 02:10] LABS: CHLORIDE 105 mEq/L (98-107)
[2020-05-02 02:14] LABS: ETHANOL BLOOD 11 mg/dL
[2020-05-02 04:06] LABS: CLARITY URINE CLOUDY (CLEAR); COLOR URINE YELLOW (YELLOW); KETONES URINE NEGATIVE (NEGATIVE); LEUKOCYTE ESTERASE URINE 1+ (NEGATIVE); NITRITE URINE NEGATIVE (NEGATIVE); OCCULT BLOOD URINE NEGATIVE (NEGATIVE); PROTEIN URINE TRACE (NEGATIVE)
[2020-05-02 04:19] LABS: *BARBITURATES SCREEN URINE NEGATIVE (NEGATIVE); *COCAINE SCREEN URINE NEGATIVE (NEGATIVE); METHADONE URINE SCREEN NEGATIVE (NEGATIVE); OPIATES URINE SCREEN NEGATIVE (NEGATIVE); PHENCYCLIDINE URINE SCREEN NEGATIVE (NEGATIVE)
[2020-05-02 04:20] LABS: *BENZODIAZEPINES SCREEN URINE NEGATIVE (NEGATIVE)
[2020-05-02 04:28] LABS: *AMPHETAMINES SCREEN URINE PRESUMTIVE POSITIVE (NEGATIVE); CANNABINOID URINE SCREEN PRESUMTIVE POSITIVE (NEGATIVE)
[2020-05-02 05:45] VITALS: BP 130/58
[2020-05-03] MEDS ORDERED: SODIUM CHLORIDE 0.9% 1,000 ML IV ONE (01:00)
== END 2020-05-02 06:00 | disposition home or self-care (01) ==
LOC: ER 23:55
DX: F15.10 Other stimulant abuse, uncomplicated (principal); F16.10 Hallucinogen abuse, uncomplicated; F12.10 Cannabis abuse, uncomplicated; F10.129 Alcohol abuse with intoxication, unspecified; Y90.0 Blood alcohol level of less than 20 mg/100 ml; F14.10 Cocaine abuse, uncomplicated; I10 Essential (primary) hypertension; E11.9 Type 2 diabetes mellitus without complications; F20.9 Schizophrenia, unspecified
CPT/HCPCS: 36415; 80053; 80305; 80320; 81003; 85025; 87086; 93005; 96360; 99285; J7030; G0480

== ENCOUNTER 2020-05-18 06:40 | Emergency (ER) | payer MEDICAID ==
[~2020-05-18] VITALS: Ht 172.7 cm; Wt 136.0 kg
[2020-05-18] MEDS ORDERED: IBUPROFEN 600MG TABLET PO STA (07:28)
[2020-05-18 08:14] LABS: BASOPHILS % 0.6 % (0.0-2.0); EOSINOPHILS % 1.6 % (0.0-5.0); HEMATOCRIT. 34.7 % (36.0-48.0); HEMOGLOBIN. 11.5 g/dL (12.0-16.0); LYMPHOCYTES % 34.1 % (20.0-50.0); MEAN CORPUSCULAR HEMOGLOBIN 28.5 pg (28.0-32.0); MONOCYTES % 6.6 % (2.0-8.0); NEUTROPHILS % 57.1 % (40.0-76.0); PLATELET 316 x1000/uL (130-400); RED BLOOD CELL COUNT 4.04 mill/uL (4.2-5.4); RED CELL DISTRIBUTION WIDTH 18.3 % (11.6-14.6)
[2020-05-18 08:25] LABS: CHLORIDE 104 mEq/L (98-107)
[2020-05-18 08:27] LABS: ETHANOL BLOOD < 10 mg/dL
[2020-05-18 08:34] LABS: CLARITY URINE CLEAR (CLEAR); COLOR URINE RED (YELLOW); KETONES URINE NEGATIVE (NEGATIVE); LEUKOCYTE ESTERASE URINE TRACE (NEGATIVE); NITRITE URINE NEGATIVE (NEGATIVE); OCCULT BLOOD URINE 3+ (NEGATIVE); PH URINE 5.5 (4.5-8.0); PROTEIN URINE TRACE (NEGATIVE); UROBILINOGEN URINE 0.2 E.U./dL (0.2-1.0)
[2020-05-18 09:00] VITALS: BP 145/70
[2020-05-18 09:02] LABS: *BARBITURATES SCREEN URINE NEGATIVE (NEGATIVE); *BENZODIAZEPINES SCREEN URINE NEGATIVE (NEGATIVE); *COCAINE SCREEN URINE NEGATIVE (NEGATIVE); METHADONE URINE SCREEN NEGATIVE (NEGATIVE); OPIATES URINE SCREEN NEGATIVE (NEGATIVE); PHENCYCLIDINE URINE SCREEN NEGATIVE (NEGATIVE)
[2020-05-18 09:11] LABS: CANNABINOID URINE SCREEN NEGATIVE (NEGATIVE)
[2020-05-18 09:15] LABS: *AMPHETAMINES SCREEN URINE PRESUMTIVE POSITIVE (NEGATIVE)
== END 2020-05-18 09:49 | disposition home or self-care (01) ==
LOC: ER 06:40
DX: T14.8XXA Other injury of unspecified body region, initial encounter (principal); F31.9 Bipolar disorder, unspecified; E11.9 Type 2 diabetes mellitus without complications; I10 Essential (primary) hypertension; F14.10 Cocaine abuse, uncomplicated; F12.10 Cannabis abuse, uncomplicated; F15.10 Other stimulant abuse, uncomplicated; Y08.89XA Assault by other specified means, initial encounter; Y93.89 Activity, other specified; Y92.488 Other paved roadways as the place of occurrence of the external cause
CPT/HCPCS: 36415; 71045; 80053; 80305; 80320; 81003; 81025; 85025; 93005; 99285; G0480

== ENCOUNTER 2020-06-11 01:01 | Emergency (ER) | payer MEDICAID ==
[~2020-06-11] VITALS: Ht 167.6 cm; Wt 127.0 kg
[2020-06-11 01:57] VITALS: BP 104/49
== END 2020-06-11 03:15 | disposition home or self-care (01) ==
LOC: ER 01:01
DX: R05 Cough (principal); R06.02 Shortness of breath; I10 Essential (primary) hypertension; E11.9 Type 2 diabetes mellitus without complications; F12.10 Cannabis abuse, uncomplicated; F17.210 Nicotine dependence, cigarettes, uncomplicated; Z71.6 Tobacco abuse counseling; Z79.84 Long term (current) use of oral hypoglycemic drugs; Z79.82 Long term (current) use of aspirin
CPT/HCPCS: 71045; 93005; 99283; 99406

== ENCOUNTER 2020-08-17 23:35 | Emergency (ER) | payer MEDICAID ==
[~2020-08-17] VITALS: Ht 167.6 cm; Wt 79.5 kg
[2020-08-18] MEDS ORDERED: ACETAMINOPHEN 325MG TABLET PO ONE (01:15)
[2020-08-18] MEDS ORDERED: ONDANSETRON HCL 4MG/2ML INJ IV STA (01:59)
[2020-08-18] MEDS ORDERED: KETOROLAC 30MG/ML VIAL IV STA (01:59)
[2020-08-18] MEDS ORDERED: SODIUM CHLORIDE 0.9% 1,000 ML IV ONE (02:00)
[2020-08-18 02:42] LABS: METHADONE URINE SCREEN NEGATIVE (NEGATIVE)
[2020-08-18 02:43] LABS: *BARBITURATES SCREEN URINE NEGATIVE (NEGATIVE); *BENZODIAZEPINES SCREEN URINE NEGATIVE (NEGATIVE); *COCAINE SCREEN URINE NEGATIVE (NEGATIVE); CANNABINOID URINE SCREEN NEGATIVE (NEGATIVE); OPIATES URINE SCREEN NEGATIVE (NEGATIVE); PHENCYCLIDINE URINE SCREEN NEGATIVE (NEGATIVE)
[2020-08-18 02:54] LABS: BASOPHILS % 0.5 % (0.0-2.0); EOSINOPHILS % 1.5 % (0.0-5.0); HEMOGLOBIN. 11.7 g/dL (12.0-16.0); LYMPHOCYTES % 44.5 % (20.0-50.0); MEAN CORPUSCULAR VOLUME 86.2 fL (81.0-99.0); MEAN PLATELET VOLUME 7.9 fl (7.4-10.4); MONOCYTES % 5.2 % (2.0-8.0); NEUTROPHILS % 48.3 % (40.0-76.0); PLATELET 274 x1000/uL (130-400); RED BLOOD CELL COUNT 4.17 mill/uL (4.2-5.4); RED CELL DISTRIBUTION WIDTH 16.5 % (11.6-14.6)
[2020-08-18 03:02] LABS: CHLORIDE 108 mEq/L (98-107)
[2020-08-18 03:07] LABS: CLARITY URINE CLEAR (CLEAR); COLOR URINE YELLOW (YELLOW); KETONES URINE NEGATIVE (NEGATIVE); LEUKOCYTE ESTERASE URINE 2+ (NEGATIVE); NITRITE URINE NEGATIVE (NEGATIVE); OCCULT BLOOD URINE 3+ (NEGATIVE); PROTEIN URINE NEGATIVE (NEGATIVE); SPECIFIC GRAVITY URINE 1.007 (1.005-1.030)
[2020-08-18 03:09] LABS: ETHANOL BLOOD 11 mg/dL
[2020-08-18 03:19] LABS: HCG SCREEN NEGATIVE
[2020-08-18 03:27] LABS: *AMPHETAMINES SCREEN URINE PRESUMTIVE POSITIVE (NEGATIVE)
[2020-08-18] MEDS ORDERED: CEFTRIAXONE 1 G PREMIX 50 ML IV ONE (04:30)
[2020-08-18] MEDS ORDERED: CEPH500C2 MT (06:24)
[2020-08-18 06:40] VITALS: BP 153/82
== END 2020-08-18 06:44 | disposition home or self-care (01) ==
LOC: ER 23:35
DX: N39.0 Urinary tract infection, site not specified (principal); F15.10 Other stimulant abuse, uncomplicated; I10 Essential (primary) hypertension; E11.9 Type 2 diabetes mellitus without complications; F31.9 Bipolar disorder, unspecified; Z86.19 Personal history of other infectious and parasitic diseases; Z79.84 Long term (current) use of oral hypoglycemic drugs; Z79.82 Long term (current) use of aspirin
CPT/HCPCS: 36415; 80048; 80305; 80320; 81003; 81025; 82962; 83690; 84703; 85025; 87070; 87086; 87430; 96361; 96365; 96375; 99285; J0696; J1885; J2405; J7030; G0480

== ENCOUNTER 2020-09-05 12:26 | Emergency (ER) | payer MEDICAID ==
[~2020-09-05] VITALS: Ht 170.2 cm; Wt 87.0 kg
[~2020-09-05 12:26] MED LIST changes: +CEPH500C2 MT
[2020-09-05 12:43] VITALS: BP 143/78
[2020-09-05] MEDS ORDERED: IBUPROFEN 600MG TABLET PO STA (12:52)
[2020-09-05 13:12] LABS: BASOPHILS % 0.5 % (0.0-2.0); EOSINOPHILS % 1.8 % (0.0-5.0); HEMATOCRIT. 32.3 % (36.0-48.0); HEMOGLOBIN. 10.6 g/dL (12.0-16.0); MEAN CORPUSCULAR HEMOGLOBIN 28.1 pg (28.0-32.0); MEAN CORPUSCULAR VOLUME 85.7 fL (81.0-99.0); MEAN PLATELET VOLUME 7.5 fl (7.4-10.4); MONOCYTES % 6.7 % (2.0-8.0); PLATELET 243 x1000/uL (130-400); RED BLOOD CELL COUNT 3.77 mill/uL (4.2-5.4); RED CELL DISTRIBUTION WIDTH 16.7 % (11.6-14.6)
[2020-09-05 13:21] LABS: CHLORIDE 109 mEq/L (98-107)
[2020-09-05 13:29] LABS: HCG SCREEN NEGATIVE
[2020-09-05 13:32] LABS: ETHANOL BLOOD < 10 mg/dL
== END 2020-09-05 14:14 | disposition left against medical advice (07) ==
LOC: ER 12:26
DX: R07.89 Other chest pain (principal); R11.2 Nausea with vomiting, unspecified; I10 Essential (primary) hypertension; E11.9 Type 2 diabetes mellitus without complications; F31.9 Bipolar disorder, unspecified
CPT/HCPCS: 36415; 71045; 80053; 80320; 84484; 84703; 85025; 93005; 99285; G0480

== ENCOUNTER 2021-08-24 09:35 | Emergency (ER) | payer MEDICAID ==
[~2021-08-24] VITALS: Ht 167.6 cm; Wt 118.0 kg
[2021-08-24 12:13] VITALS: BP 158/93
== END 2021-08-24 12:14 | disposition home or self-care (01) ==
LOC: ER 09:35
DX: J02.9 Acute pharyngitis, unspecified (principal); J06.9 Acute upper respiratory infection, unspecified; M79.10 Myalgia, unspecified site; I10 Essential (primary) hypertension; Z88.0 Allergy status to penicillin; Z20.822 Contact with and (suspected) exposure to COVID-19; Z98.890 Other specified postprocedural states
CPT/HCPCS: 71045; 87426; 99284

== ENCOUNTER 2021-09-08 11:45 | Emergency (ER) | payer MEDICAID ==
[~2021-09-08] VITALS: Ht 180.3 cm; Wt 112.0 kg
[2021-09-08] MEDS ORDERED: DIPHENHYDRAMINE 50MG/ML VIAL IM STA (12:40)
[2021-09-08] MEDS ORDERED: OLANZAPINE 10 MG/VIAL IM STA (12:40)
[2021-09-08] MEDS ORDERED: LORAZEPAM 2MG/ML CPJ IM PRN (12:45)
[2021-09-08 13:25] VITALS: BP 197/101
[2021-09-08 14:07] LABS: BASOPHILS % 0.4 % (0.0-2.0); EOSINOPHILS % 1.1 % (0.0-5.0); HEMATOCRIT. 34.7 % (36.0-48.0); HEMOGLOBIN. 11.6 g/dL (12.0-16.0); LYMPHOCYTES % 28.4 % (20.0-50.0); MEAN CORPUSCULAR HEMOGLOBIN 28.8 pg (28.0-32.0); MEAN CORPUSCULAR VOLUME 86.5 fL (81.0-99.0); MONOCYTES % 5.1 % (2.0-8.0); PLATELET 271 x1000/uL (130-400); RED BLOOD CELL COUNT 4.01 mill/uL (4.2-5.4); RED CELL DISTRIBUTION WIDTH 15.7 % (11.6-14.6)
[2021-09-08 14:19] LABS: CHLORIDE 108 mEq/L (98-107); CLARITY URINE CLEAR (CLEAR); COLOR URINE YELLOW (YELLOW); KETONES URINE NEGATIVE (NEGATIVE); LEUKOCYTE ESTERASE URINE TRACE (NEGATIVE); NITRITE URINE NEGATIVE (NEGATIVE); OCCULT BLOOD URINE TRACE (NEGATIVE); PROTEIN URINE NEGATIVE (NEGATIVE); SPECIFIC GRAVITY URINE 1.012 (1.005-1.030); UROBILINOGEN URINE 0.2 E.U./dL (0.2-1.0)
[2021-09-08 14:23] LABS: ETHANOL BLOOD 154 mg/dL
[2021-09-08 14:35] LABS: *COCAINE SCREEN URINE NEGATIVE (NEGATIVE); CANNABINOID URINE SCREEN NEGATIVE (NEGATIVE); OPIATES URINE SCREEN NEGATIVE (NEGATIVE)
[2021-09-08 14:36] LABS: *BARBITURATES SCREEN URINE NEGATIVE (NEGATIVE)
[2021-09-08 14:37] LABS: *AMPHETAMINES SCREEN URINE PRESUMTIVE POSITIVE (NEGATIVE); METHADONE URINE SCREEN NEGATIVE (NEGATIVE)
[2021-09-08 14:38] LABS: *BENZODIAZEPINES SCREEN URINE NEGATIVE (NEGATIVE)
[2021-09-08 14:40] LABS: PHENCYCLIDINE URINE SCREEN PRESUMTIVE POSITIVE (NEGATIVE)
[2021-09-08 14:41] LABS: HCG SCREEN NEGATIVE
== END 2021-09-08 19:41 | disposition home or self-care (01) ==
LOC: ER 11:45
DX: F19.10 Other psychoactive substance abuse, uncomplicated (principal); Z20.822 Contact with and (suspected) exposure to COVID-19
CPT/HCPCS: 36415; 80053; 80305; 80320; 81003; 84703; 85025; 96372; 99291; C9803; J1200; J2060; J3490; U0003; U0005; G0480

== ENCOUNTER 2021-09-27 19:03 | Emergency (ER) | payer MEDICAID ==
[~2021-09-27] VITALS: Ht 167.6 cm; Wt 80.0 kg
[2021-09-27 19:11] VITALS: BP 230/114
== END 2021-09-27 19:30 | disposition left against medical advice (07) ==
LOC: ER 19:03
DX: Z53.21 Procedure and treatment not carried out due to patient leaving prior to being seen by health care provider (principal)
CPT/HCPCS: 93005

== ENCOUNTER 2021-10-04 04:46 | Emergency (ER) | payer MEDICAID ==
[~2021-10-04] VITALS: Ht 157.5 cm; Wt 110.0 kg
[2021-10-04] MEDS ORDERED: IBUPROFEN 400MG TABLET PO ONE (06:30)
[2021-10-04] MEDS ORDERED: LABE300T3 PO (06:32)
[2021-10-04] MEDS ORDERED: IBUP-2028 PO (06:32)
[2021-10-04 07:45] VITALS: BP 197/101
[2021-10-04] MEDS ORDERED: LABETALOL HCL 300MG TABLET PO STA (08:12)
== END 2021-10-04 09:39 | disposition left against medical advice (07) ==
LOC: ER 04:46
DX: R07.0 Pain in throat (principal); I16.0 Hypertensive urgency; Z20.822 Contact with and (suspected) exposure to COVID-19; Z88.0 Allergy status to penicillin; Z91.018 Allergy to other foods
CPT/HCPCS: 87070; 87426; 87430; 99283

== ENCOUNTER 2021-11-28 08:08 | Emergency (ER) | payer MEDICAID ==
[~2021-11-28] VITALS: Ht 177.8 cm; Wt 110.0 kg
[~2021-11-28 08:08] MED LIST changes: +IBUP-2028 PO
[2021-11-28] MEDS ORDERED: MORPHINE SULFATE 4 MG/ML CPJ (NOT FOR IM USE) IV STA (08:18)
[2021-11-28] MEDS ORDERED: ONDANSETRON HCL 4MG/2ML INJ IV STA (08:18)
[2021-11-28] MEDS ORDERED: SODIUM CHLORIDE 0.9% 1,000 ML IV ONE (08:30)
[2021-11-28 08:40] LABS: BASOPHILS % 0.4 % (0.0-2.0); EOSINOPHILS % 0.8 % (0.0-5.0); HEMATOCRIT. 39.6 % (36.0-48.0); HEMOGLOBIN. 13.3 g/dL (12.0-16.0); LYMPHOCYTES % 28.6 % (20.0-50.0); MEAN CORPUSCULAR HEMOGLOBIN 29.1 pg (28.0-32.0); MEAN CORPUSCULAR VOLUME 86.3 fL (81.0-99.0); MEAN PLATELET VOLUME 7.7 fl (7.4-10.4); MONOCYTES % 4.1 % (2.0-8.0); NEUTROPHILS % 66.1 % (40.0-76.0); PLATELET 319 x1000/uL (130-400); RED BLOOD CELL COUNT 4.59 mill/uL (4.2-5.4); RED CELL DISTRIBUTION WIDTH 16.2 % (11.6-14.6)
[2021-11-28 08:46] LABS: CHLORIDE 108 mEq/L (98-107)
[2021-11-28 08:52] LABS: ETHANOL BLOOD < 10 mg/dL
[2021-11-28 13:39] LABS: HCG SCREEN NEGATIVE
[2021-11-28 13:40] LABS: CLARITY URINE CLEAR (CLEAR); COLOR URINE YELLOW (YELLOW); KETONES URINE NEGATIVE (NEGATIVE); LEUKOCYTE ESTERASE URINE TRACE (NEGATIVE); NITRITE URINE NEGATIVE (NEGATIVE); OCCULT BLOOD URINE 3+ (NEGATIVE); PROTEIN URINE NEGATIVE (NEGATIVE); UROBILINOGEN URINE 0.2 E.U./dL (0.2-1.0)
[2021-11-28 14:06] LABS: *AMPHETAMINES SCREEN URINE PRESUMTIVE POSITIVE (NEGATIVE); *BARBITURATES SCREEN URINE NEGATIVE (NEGATIVE); *BENZODIAZEPINES SCREEN URINE NEGATIVE (NEGATIVE); *COCAINE SCREEN URINE NEGATIVE (NEGATIVE); CANNABINOID URINE SCREEN NEGATIVE (NEGATIVE); METHADONE URINE SCREEN NEGATIVE (NEGATIVE); OPIATES URINE SCREEN PRESUMTIVE POSITIVE (NEGATIVE); PHENCYCLIDINE URINE SCREEN PRESUMTIVE POSITIVE (NEGATIVE)
[2021-11-28] MEDS ORDERED: ACET-2708 MT (15:11)
[2021-11-28 17:03] VITALS: BP 165/81
== END 2021-11-28 15:10 | disposition home or self-care (01) ==
LOC: ER 08:08
DX: R51.9 Headache, unspecified (principal); R11.2 Nausea with vomiting, unspecified; Z88.0 Allergy status to penicillin; Z79.899 Other long term (current) drug therapy; I10 Essential (primary) hypertension
CPT/HCPCS: 36415; 70450; 80053; 80305; 80320; 81003; 84703; 85025; 93005; 96361; 96374; 96375; 99285; J2270; J2405; J7030; Z7610; G0480

== ENCOUNTER 2021-12-01 10:33 | Emergency (ER) | payer MEDICAID ==
[~2021-12-01] VITALS: Ht 167.6 cm; Wt 100.6 kg
[~2021-12-01 10:33] MED LIST changes: +ACET-2708 MT
[2021-12-01 10:35] VITALS: BP 161/96
[2021-12-01 11:17] LABS: BASOPHILS % 0.7 % (0.0-2.0); EOSINOPHILS % 1.4 % (0.0-5.0); HEMATOCRIT. 37.5 % (36.0-48.0); HEMOGLOBIN. 12.5 g/dL (12.0-16.0); LYMPHOCYTES % 30.1 % (20.0-50.0); MEAN CORPUSCULAR HEMOGLOBIN 28.9 pg (28.0-32.0); MEAN CORPUSCULAR VOLUME 86.6 fL (81.0-99.0); MEAN PLATELET VOLUME 7.7 fl (7.4-10.4); MONOCYTES % 5.6 % (2.0-8.0); NEUTROPHILS % 62.2 % (40.0-76.0); PLATELET 351 x1000/uL (130-400); RED BLOOD CELL COUNT 4.33 mill/uL (4.2-5.4); RED CELL DISTRIBUTION WIDTH 16.1 % (11.6-14.6)
[2021-12-01 11:26] LABS: INR 0.9
[2021-12-01 11:42] LABS: CHLORIDE 106 mEq/L (98-107)
[2021-12-01 11:52] LABS: HCG SCREEN NEGATIVE
== END 2021-12-01 12:18 | disposition left against medical advice (07) ==
LOC: ER 10:33
DX: Z53.21 Procedure and treatment not carried out due to patient leaving prior to being seen by health care provider (principal)
CPT/HCPCS: 36415; 80053; 84703; 85025

== ENCOUNTER 2021-12-11 13:10 | Emergency (ER) | payer MEDICAID ==
[~2021-12-11] VITALS: Ht 172.7 cm; Wt 104.0 kg
[2021-12-11] MEDS ORDERED: SODIUM CHLORIDE 0.9% 1,000 ML IV ONE (14:15)
[2021-12-11 14:21] LABS: BASOPHILS % 0.6 % (0.0-2.0); EOSINOPHILS % 0.7 % (0.0-5.0); HEMATOCRIT. 38.7 % (36.0-48.0); HEMOGLOBIN. 13.1 g/dL (12.0-16.0); LYMPHOCYTES % 23.6 % (20.0-50.0); MEAN CORPUSCULAR HEMOGLOBIN 29.3 pg (28.0-32.0); MEAN CORPUSCULAR VOLUME 86.8 fL (81.0-99.0); MONOCYTES % 5.4 % (2.0-8.0); NEUTROPHILS % 69.7 % (40.0-76.0); PLATELET 431 x1000/uL (130-400); RED BLOOD CELL COUNT 4.46 mill/uL (4.2-5.4); RED CELL DISTRIBUTION WIDTH 15.5 % (11.6-14.6)
[2021-12-11 14:28] LABS: CHLORIDE 107 mEq/L (98-107)
[2021-12-11 14:38] LABS: HCG SCREEN NEGATIVE
[2021-12-11 14:47] LABS: ETHANOL BLOOD < 10 mg/dL
[2021-12-11 15:31] LABS: CLARITY URINE CLEAR (CLEAR); COLOR URINE YELLOW (YELLOW); KETONES URINE NEGATIVE (NEGATIVE); LEUKOCYTE ESTERASE URINE NEGATIVE (NEGATIVE); NITRITE URINE NEGATIVE (NEGATIVE); OCCULT BLOOD URINE NEGATIVE (NEGATIVE); PH URINE 5.5 (4.5-8.0); PROTEIN URINE NEGATIVE (NEGATIVE); SPECIFIC GRAVITY URINE 1.006 (1.005-1.030); UROBILINOGEN URINE 0.2 E.U./dL (0.2-1.0)
[2021-12-11 15:44] LABS: *AMPHETAMINES SCREEN URINE NEGATIVE (NEGATIVE); *BARBITURATES SCREEN URINE NEGATIVE (NEGATIVE); *BENZODIAZEPINES SCREEN URINE NEGATIVE (NEGATIVE); *COCAINE SCREEN URINE NEGATIVE (NEGATIVE); CANNABINOID URINE SCREEN NEGATIVE (NEGATIVE); METHADONE URINE SCREEN NEGATIVE (NEGATIVE); OPIATES URINE SCREEN NEGATIVE (NEGATIVE); PHENCYCLIDINE URINE SCREEN NEGATIVE (NEGATIVE)
[2021-12-11] MEDS ORDERED: AMLODIPINE 5MG TABLET PO ONE ×2 (15:45→19:15)
[2021-12-12] MEDS ORDERED: ZIPRASIDONE MESYLATE 20MG/VIAL IM SCH (02:45)
[2021-12-12] MEDS ORDERED: ZIPRASIDONE MESYLATE 20MG/VIAL IM ONE (02:45)
[2021-12-12 09:03] VITALS: BP 175/95
== END 2021-12-12 12:49 | disposition home or self-care (01) ==
LOC: ER 13:10
DX: R45.851 Suicidal ideations (principal); F41.9 Anxiety disorder, unspecified; J45.909 Unspecified asthma, uncomplicated; F31.9 Bipolar disorder, unspecified; I10 Essential (primary) hypertension; F20.9 Schizophrenia, unspecified; Z86.73 Personal history of transient ischemic attack (TIA), and cerebral infarction without residual deficits
CPT/HCPCS: 36415; 80053; 80305; 80307; 80320; 80329; 81003; 84443; 84703; 85025; 93005; 96360; 96372; 99285; J3486; J7030; G0480

== ENCOUNTER 2022-01-02 12:46 | Emergency (ER) | payer MEDICAID ==
[~2022-01-02] VITALS: Ht 170.2 cm; Wt 100.0 kg
[2022-01-02 12:53] VITALS: BP 190/93
== END 2022-01-02 13:20 | disposition left against medical advice (07) ==
LOC: ER 12:46
DX: Z53.21 Procedure and treatment not carried out due to patient leaving prior to being seen by health care provider (principal)

== ENCOUNTER 2022-01-11 01:00 | Emergency (ER) | payer MEDICAID ==
[~2022-01-11] VITALS: Ht 167.6 cm; Wt 69.0 kg
[2022-01-11 01:03] VITALS: BP 175/91
[2022-01-11] MEDS ORDERED: METF-873 MT (23:16)
[2022-01-11] MEDS ORDERED: QUET100T MT (23:16)
[2022-01-11] MEDS ORDERED: IBUP-2029 MT (23:16)
[2022-01-11] MEDS ORDERED: LABE100T5 MT (23:16)
== END 2022-01-11 07:43 | disposition left against medical advice (07) ==
LOC: ER 01:07
DX: Z53.21 Procedure and treatment not carried out due to patient leaving prior to being seen by health care provider (principal)

== ENCOUNTER 2022-01-11 22:19 | Emergency (ER) | payer MEDICAID ==
[~2022-01-11] VITALS: Ht 170.2 cm; Wt 88.0 kg
[2022-01-11] MEDS ORDERED: AMLODIPINE 5MG TABLET PO ONE (23:15)
[2022-01-11] MEDS ORDERED: LABETALOL HCL 100MG TABLET PO ONE (23:15)
[2022-01-11] MEDS ORDERED: QUETIAPINE FUMARATE 50MG TABLET PO SCH (23:15)
[2022-01-11] MEDS ORDERED: LABE100T5 MT (23:16)
[2022-01-11] MEDS ORDERED: METF-873 MT (23:16)
[2022-01-11] MEDS ORDERED: IBUP-2029 MT (23:16)
[2022-01-11] MEDS ORDERED: QUET100T MT (23:16)
[2022-01-11] MEDS ORDERED: IBUPROFEN 600MG TABLET PO ONE (23:30)
[2022-01-11 23:51] VITALS: BP 195/100
== END 2022-01-11 23:53 | disposition home or self-care (01) ==
LOC: ER 22:19
DX: Z76.0 Encounter for issue of repeat prescription (principal); F20.9 Schizophrenia, unspecified; F41.9 Anxiety disorder, unspecified; I10 Essential (primary) hypertension; Z79.84 Long term (current) use of oral hypoglycemic drugs; Z88.0 Allergy status to penicillin; Z91.018 Allergy to other foods
CPT/HCPCS: 99284; Z7610

== ENCOUNTER 2022-01-12 00:03 | Emergency (ER) | payer MEDICAID ==
[~2022-01-12] VITALS: Ht 167.6 cm; Wt 91.0 kg
[~2022-01-12 00:03] MED LIST changes: +IBUP-2029 MT; +LABE100T5 MT; +METF-873 MT; +QUET100T MT
[2022-01-12 01:02] VITALS: BP 172/97
== END 2022-01-12 01:13 | disposition home or self-care (01) ==
LOC: ER 00:03
DX: F31.9 Bipolar disorder, unspecified (principal); I10 Essential (primary) hypertension; J45.909 Unspecified asthma, uncomplicated; Z76.0 Encounter for issue of repeat prescription; Z88.0 Allergy status to penicillin; Z79.899 Other long term (current) drug therapy; Z86.73 Personal history of transient ischemic attack (TIA), and cerebral infarction without residual deficits; Z86.59 Personal history of other mental and behavioral disorders
CPT/HCPCS: 99281

== ENCOUNTER 2022-07-04 05:29 | Emergency (ER) | payer MEDICAID ==
[~2022-07-04] VITALS: Ht 167.6 cm; Wt 73.0 kg
[~2022-07-04 05:29] MED LIST changes: -LABE100T5 MT; -LABE100T5 PO; +LABE100T9 MT; +LABE100T9 PO; -LABE300T3 PO; +LABE300T36 PO
[2022-07-04 05:32] VITALS: BP 144/68
== END 2022-07-04 07:44 | disposition left against medical advice (07) ==
LOC: ER 05:29
DX: M79.645 Pain in left finger(s) (principal); F20.9 Schizophrenia, unspecified; I10 Essential (primary) hypertension; F41.9 Anxiety disorder, unspecified; Z86.73 Personal history of transient ischemic attack (TIA), and cerebral infarction without residual deficits; Z79.84 Long term (current) use of oral hypoglycemic drugs; Z91.018 Allergy to other foods; Z88.0 Allergy status to penicillin
CPT/HCPCS: 99283

== ENCOUNTER 2022-10-05 23:39 | Emergency (ER) | payer MEDICAID ==
[~2022-10-05] VITALS: Ht 167.6 cm; Wt 70.0 kg
[2022-10-05 23:43] VITALS: BP 142/78
== END 2022-10-06 00:20 | disposition left against medical advice (07) ==
LOC: ER 23:39
DX: R05.9 Cough, unspecified (principal); E11.9 Type 2 diabetes mellitus without complications; I10 Essential (primary) hypertension; Z88.0 Allergy status to penicillin; Z79.899 Other long term (current) drug therapy
CPT/HCPCS: 71045; 99283

== ENCOUNTER 2022-10-06 06:28 | Emergency (ER) | payer MEDICAID ==
[~2022-10-06] VITALS: Ht 165.1 cm; Wt 78.0 kg
[2022-10-06 06:58] VITALS: BP 163/80
== END 2022-10-06 07:57 | disposition left against medical advice (07) ==
LOC: ER 06:28
DX: Z53.21 Procedure and treatment not carried out due to patient leaving prior to being seen by health care provider (principal)
CPT/HCPCS: 99281